=== PATIENT | male | born 1945 | race Two or more races ===

== ENCOUNTER 2017-04-25 17:19 | Emergency (ER) | payer MEDICARE, BC ==
[~2017-04-25] VITALS: Ht 188 cm; Wt 94.3 kg
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
--- NOTE | 2017-04-25 18:20 | NUR ---
BP NOTED HIGH, OFFERED PAIN MEDICINE, PT REFUSED.
--- NOTE | 2017-04-25 19:27 | NUR ---
Patient discharged to home in stable condition. Written and verbal after care instructions given. Patient verbalizes understanding of instruction.
[2017-04-25 19:28] VITALS: BP 165/85
== END 2017-04-25 19:27 | disposition home or self-care (01) ==
LOC: ER 17:22
DX: S13.9XXA Sprain of joints and ligaments of unspecified parts of neck, initial encounter (principal); S43.401A Unspecified sprain of right shoulder joint, initial encounter; I10 Essential (primary) hypertension; V49.49XA Driver injured in collision with other motor vehicles in traffic accident, initial encounter; Y93.89 Activity, other specified; Y92.89 Other specified places as the place of occurrence of the external cause; Y99.8 Other external cause status
CPT/HCPCS: 72040; 73030; 82962; 93005; 99284; A4606; Z7610